=== PATIENT | female | born 1945 | race Hispanic/Latino ===

== ENCOUNTER 2018-05-22 11:42 | Inpatient (IN) | payer MEDICARE, OTHER ==
[2018-05-22] MEDS ORDERED: Sodium Chloride 0.9% 1,000 ML IV STA (12:05)
[2018-05-22] MEDS ORDERED: Lidocaine/Epi 1% 1:100000 20 ML IJ ONE (12:06)
--- NOTE | 2018-05-22 12:10 | ED PDOC ---
Syncope/Near Syncope/Dizziness <Coty Zepeda - Last Filed: 05/22/18 13:09> History Per: Patient, EMS Onset/Duration Of Symptoms: Hrs (1) Current Symptoms Are (Timing): Better Activity At Onset Of Symptoms: Exertional Activity Associated Symptoms Preceding Syncopal Episode: Lightheadedness Seizure Or Post-ictal Symptoms: Generalized Seizure Activity Fall Associated With With Symptoms: Yes, Positive Injury Severity: Moderate Additional Complaint(s): Brought by EMS after pt experienced syncopal episode. Occurred after playing tennis in sun. Pt describes feeling light headed prior to passing out. [place] "woozy". Does not recall falling or hitting head. Daughter was witness and described generalized shaking upper ext and tensing lasted approx 30 sec. Pt denies chest pain or palpitations. No change in vision. Started vomiting after arriving to ED. <Joshua Collado - Last Filed: 05/22/18 14:29> Time Seen by Provider: 05/22/18 11:54 Chief Complaint (Nursing): Dizziness/Lightheaded Past Medical History <Coty Zepeda - Last Filed: 05/22/18 13:09> - Medical History PMH: HTN Denies: Chronic Kidney Disease - Family History Family History: States: Unknown Family Hx - Immunization History Hx Tetanus Toxoid Vaccination: Yes (5 years ago) Hx Influenza Vaccination: No Hx Pneumococcal Vaccination: No <Johsua Collado - Last Filed: 05/22/18 14:29> - Allergies Allergies/Adverse Reactions: Allergies Allergy/AdvReac Type Severity Reaction Status Date / Time No Known Allergies Allergy Verified 05/22/18 11:56 Review of Systems ROS Statement: Except As Marked, All Systems Reviewed And Found Negative Cardiovascular: Negative for: Chest Pain, Palpitations Neurological: Positive for: Seizures, Headache, Dizziness, Other (Syncope). Negative for: Weakness, Numbness <Joshua Collado - Last Filed: 05/22/18 14:29> Physical Exam - Reviewed Nursing Documentation Reviewed: Yes Vital Signs Reviewed: Yes - Physical Exam Appears: Positive for: Non-toxic, No Acute Distress Head Exam: Negative for: ATRAUMATIC (2.5 cm lac left temperooccipyal area. No palp fx.) Skin: Positive for: Normal Color, Warm, DRY Eye Exam: Positive for: EOMI, Normal appearance, PERRL ENT: Positive for: Normal ENT Inspection Neck: Positive for: Normal, Painless ROM, Supple Cardiovascular/Chest: Positive for: Regular Rate, Rhythm Respiratory: Positive for: CNT, Normal Breath Sounds Gastrointestinal/Abdominal: Positive for: Normal Exam, Soft Back: Positive for: Normal Inspection. Negative for: Vertebral Tenderness Extremity: Positive for: Normal ROM Neurologic/Psych: Positive for: Alert, Oriented. Negative for: Motor/Sensory Deficits <Joshua Collado - Last Filed: 05/22/18 14:29> - Laboratory Results Result Diagrams: 05/22/18 12:24 05/22/18 12:24 <DuaneCoty - Last Filed: 05/22/18 13:09> - Laboratory Results Result Diagrams: 05/22/18 12:24 05/22/18 12:24 <HeavenJoshua Brand - Last Filed: 05/22/18 14:29> Procedures - Laceration/Wound Repair Left Occipital Wound Length (cm): 5.5 Wound's Depth, Shape: linear Wound Explored: no foreign body removed Irrigated w/ Saline (ccs): 250 Betadine Prep?: Yes (250cc of betadine and 250cc of NS) Anesthesia: 1% Lidocaine Volume Anesthetic (ccs): 6 Wound Repaired With: Elpidio Wound Complexity: Simple <DuaneCoty - Last Filed: 05/22/18 13:09> Disposition <Coty Zepeda - Last Filed: 05/22/18 13:09> - Patient ED Disposition Is Patient to be Admitted: Yes - Disposition Disposition Time: 14:29 - Pt Status Changed To: Hospital Disposition Of: Observation - POA Present On Arrival: None <Joshua Collado - Last Filed: 05/22/18 14:29> - Clinical Impression Clinical Impression: Syncope - Disposition Condition: FAIR Forms: [employer] ([place])
[2018-05-22] MEDS ORDERED: Lidocaine 1% Inj (20ml) ONE (12:23)
[2018-05-22 12:43] LABS: ALB/GLOB RATIO 1.4 (1.0-2.1); ALBUMIN 4.4 g/dL (3.5-5.0); ALT/SGPT 47 U/L (9-52); AST/SGOT 32 U/L (14-36); BLOOD UREA NITROGEN 16 mg/dl (7-17); CALCIUM 9.8 mg/dL (8.4-10.2); GFR AFRICAN-AMERICAN > 60; GFR NON-AFRICAN AMERICAN > 60
[2018-05-22 12:49] LABS: BASO # 0.1 K/uL (0.0-0.2); BASO % 0.8 % (0.0-2.0); EOS # 0.1 K/uL (0.0-0.7); EOS % 1.3 % (0.0-4.0); LYMPH # 2.4 K/uL (1.0-4.3); LYMPH % 28.6 % (20.0-40.0); MEAN CELL VOLUME 85.4 fl (81.0-99.0); MEAN CORPUSCULAR HEMOGLOBIN 28.8 pg (27.0-31.0); MEAN CORPUSCULAR HGB CONC 33.8 g/dL (33.0-37.0); MEAN PLATELET VOLUME 9.4 fl (7.2-11.7); MONO # 0.6 K/uL (0.0-0.8); MONO % 7.1 % (0.0-10.0); NEUT # 5.2 K/uL (1.8-7.0); NEUT % 62.2 % (50.0-75.0); RBC 4.87 Mil/uL (3.80-5.20); RED CELL DISTRIBUTION WIDTH 12.8 % (11.5-14.5); WHITE BLOOD COUNT 8.4 K/uL (4.8-10.8)
--- NOTE | 2018-05-22 13:44 | RAD ---
Date of service: 05/22/2018 HISTORY: cough COMPARISON: No prior. FINDINGS: LUNGS: No active pulmonary disease. Bibasilar atelectasis/scarring. PLEURA: No significant pleural effusion identified, no pneumothorax apparent. CARDIOVASCULAR: Atherosclerotic aortic calcifications. Cardiomediastinal silhouette prominent. OSSEOUS STRUCTURES: Degenerative changes. VISUALIZED UPPER ABDOMEN: Normal. OTHER FINDINGS: None. IMPRESSION: No active disease.
--- NOTE | 2018-05-22 14:10 | CT ---
Date of service: 05/22/2018 PROCEDURE: CT HEAD WITHOUT CONTRAST. HISTORY: r/o bleed COMPARISON: None available. TECHNIQUE: Axial computed tomography images were obtained through the head/brain without intravenous contrast. Radiation dose: Total exam DLP = 868.4 mGy-cm. This CT exam was performed using one or more of the following dose reduction techniques: Automated exposure control, adjustment of the mA and/or kV according to patient size, and/or use of iterative reconstruction technique. FINDINGS: HEMORRHAGE: No intracranial hemorrhage. BRAIN: No mass effect or edema. No atrophy or chronic microvascular ischemic changes. VENTRICLES: Unremarkable. No hydrocephalus. CALVARIUM: Unremarkable. PARANASAL SINUSES: Unremarkable as visualized. No significant inflammatory changes. MASTOID AIR CELLS: Unremarkable as visualized. No inflammatory changes. OTHER FINDINGS: Left parietal occipital scalp swelling with superficial skin anni. IMPRESSION: Left parietal occipital scalp swelling. No calvarial fracture. No acute intracranial pathology or hemorrhage.
--- NOTE | 2018-05-22 14:13 | CT ---
Date of service: 05/22/2018 PROCEDURE: CT Cervical Spine without contrast HISTORY: trauma COMPARISON: None available. TECHNIQUE: Axial computed tomography images were obtained of the cervical spine without the use of intravenous contrast. Coronal and sagittal reformatted images were created and reviewed. Radiation dose: Total exam DLP = 521.7 mGy-cm. This CT exam was performed using one or more of the following dose reduction techniques: Automated exposure control, adjustment of the mA and/or kV according to patient size, and/or use of iterative reconstruction technique. FINDINGS: VERTEBRAE: No fracture. Normal alignment. No destructive bony lesion. DISCS/SPINAL CANAL/NEURAL FORAMINA: Multilevel disc space narrowing with endplate changes. PARASPINAL SOFT TISSUES: Unremarkable. OTHER FINDINGS: None. IMPRESSION: No acute fracture. Multilevel degenerative changes.
[2018-05-23 07:22] LABS: HEMOGLOBIN 12.5 g/dL (12.0-16.0); MEAN CELL VOLUME 85.5 fl (81.0-99.0); MEAN CORPUSCULAR HEMOGLOBIN 28.7 pg (27.0-31.0); MEAN CORPUSCULAR HGB CONC 33.5 g/dL (33.0-37.0); RBC 4.36 Mil/uL (3.80-5.20); RED CELL DISTRIBUTION WIDTH 13.1 % (11.5-14.5); WHITE BLOOD COUNT 8.3 K/uL (4.8-10.8)
--- NOTE | 2018-05-23 07:49 | CP.PCM.HP ---
History of Present Illness - History of Present Illness History of Present Illness: This is a 73 y/o female admitted for syncopal episode after playing tennis. She claims that right after playing tennis she felt very dizzy and passed out. She had no other sx such as seizure activity or vomiting . She sustained a laceration on the left occipitoparietal area. She denies having any headaches chest pain or SOB prior to onset of symptoms. She denies having any episode of dizziness in the past. Initial worrk up at the ER showed normal C spine and Ct head and normal labs. Medical Hx HTN Currently on ASA amlodipine and vitamins. Present on Admission - Present on Admission Any Indicators Present on Admission: No History of DVT/PE: No History of Uncontrolled Diabetes: No Urinary Catheter: No Decubitus Ulcer Present: No Past Patient History - Past Medical History & Family History Past Medical History?: Yes - Past Social History Smoking Status: Former Smoker - CARDIAC Hx Cardiac Disorders: Yes Hx Hypertension: Yes - PULMONARY Hx Respiratory Disorders: No - NEUROLOGICAL Hx Neurological Disorder: No - HEENT Hx HEENT Problems: No - RENAL Hx Chronic Kidney Disease: No - ENDOCRINE/METABOLIC Hx Endocrine Disorders: No - HEMATOLOGICAL/ONCOLOGICAL Hx Blood Disorders: No - INTEGUMENTARY Hx Dermatological Problems: No - MUSCULOSKELETAL/RHEUMATOLOGICAL Hx Musculoskeletal Disorders: No Hx Falls: No - GASTROINTESTINAL Hx Gastrointestinal Disorders: No - GENITOURINARY/GYNECOLOGICAL Hx Genitourinary Disorders: No - PSYCHIATRIC Hx Psychophysiologic Disorder: No Hx Substance Use: No - SURGICAL HISTORY Hx Surgeries: Yes Hx Appendectomy: Yes - ANESTHESIA Hx Anesthesia: Yes Hx Anesthesia Reactions: No Hx Malignant Hyperthermia: No Has any member of the family had a problem w/ anesthesia?: No Meds Allergies/Adverse Reactions: Allergies Allergy/AdvReac Type Severity Reaction Status Date / Time No Known Allergies Allergy Verified 05/22/18 11:56 Physical Exam - Head Exam Head Exam: NORMAL INSPECTION - Eye Exam Eye Exam: Normal appearance - ENT Exam ENT Exam: Mucous Membranes Moist - Respiratory Exam Respiratory Exam: Clear to Auscultation Bilateral - Cardiovascular Exam Cardiovascular Exam: REGULAR RHYTHM - GI/Abdominal Exam GI & Abdominal Exam: Normal Bowel Sounds - Neurological Exam Neurological exam: Alert, CN II-XII Intact, Oriented x3 - Psychiatric Exam Psychiatric exam: Normal Affect - Skin Skin Exam: Normal Color Additional comments: sutured lacerated wound at he left par[place]o occipital area. Results - Vital Signs Recent Vital Signs: Last Vital Signs Temp 98.0 F 05/23/18 04:41 Pulse 75 05/23/18 04:41 Resp 18 05/23/18 04:41 BP 127/74 05/23/18 04:41 Pulse Ox 98 05/23/18 04:41 - Labs Result Diagrams: 05/23/18 06:30 05/23/18 06:30 Labs: Laboratory Results - last 24 hr 05/22/18 05/22/18 05/22/18 12:24 12:24 12:50 WBC 8.4 RBC 4.87 Hgb 14.0 Hct 41.6 MCV 85.4 MCH 28.8 MCHC 33.8 RDW 12.8 Plt Count 208 MPV 9.4 Neut % (Auto) 62.2 Lymph % (Auto) 28.6 [place] % (Auto) 7.1 Eos % (Auto) 1.3 Baso % (Auto) 0.8 Neut # (Auto) 5.2 Lymph # (Auto) 2.4 [place] # (Auto) 0.6 Eos # (Auto) 0.1 Baso # (Auto) 0.1 Sodium 142 Potassium 3.6 Chloride 106 Carbon Dioxide 22 Anion Gap 18 BUN 16 Creatinine 0.7 Est GFR ( Amer) > 60 Est GFR (Non-Af Amer) > 60 POC Glucose (mg/dL) 109 Random Glucose 129 H Calcium 9.8 Total Bilirubin 0.8 AST 32 ALT 47 Alkaline Phosphatase 78 Troponin I < 0.0120 Total Protein 7.7 Albumin 4.4 Globulin 3.3 Albumin/Globulin Ratio 1.4 05/22/18 05/23/18 22:33 06:30 WBC 8.3 RBC 4.36 Hgb 12.5 Hct 37.2 MCV 85.5 MCH 28.7 MCHC 33.5 RDW 13.1 Plt Count 192 MPV Neut % (Auto) Lymph % (Auto) [place] % (Auto) Eos % (Auto) Baso % (Auto) Neut # (Auto) Lymph # (Auto) [place] # (Auto) Eos # (Auto) Baso # (Auto) Sodium Potassium Chloride Carbon Dioxide Anion Gap BUN Creatinine Est GFR ( Amer) Est GFR (Non-Af Amer) POC Glucose (mg/dL) Random Glucose Calcium Total Bilirubin AST ALT Alkaline Phosphatase Troponin I < 0.0120 Total Protein Albumin Globulin Albumin/Globulin Ratio Assessment & Plan (1) Syncope Status: Acute (2) Laceration of scalp Status: Acute (3) Contusion of head Status: Acute (4) HTN (hypertension) Status: Acute - Assessment and Plan (Free Text) Plan: telemetry cardiology eval monitor carotid US troponin neuro eval
[2018-05-23 07:50] LABS: ALB/GLOB RATIO 1.4 (1.0-2.1); ALT/SGPT 39 U/L (9-52); AST/SGOT 28 U/L (14-36); BLOOD UREA NITROGEN 7 mg/dl (7-17); CALCIUM 9.1 mg/dL (8.4-10.2); GFR AFRICAN-AMERICAN > 60; GFR NON-AFRICAN AMERICAN > 60
[2018-05-23 11:48] LABS: SQUAMOUS EPITHIAL < 1 /hpf (0-5); URINE BILIRUBIN NEGATIVE (NEGATIVE); URINE BLOOD NEGATIVE (NEGATIVE); URINE CLARITY CLEAR (Clear); URINE COLOR YELLOW (YELLOW); URINE GLUCOSE (UA) NEG (Normal); URINE LEUKOCYTE ESTERASE NEG Leu/uL (Negative); URINE PROTEIN NEGATIVE (NEGATIVE); URINE UROBILINOGEN 0.2-1.0 mg/dL (0.2-1.0)
--- NOTE | 2018-05-23 12:15 | CP.PCM.CON ---
History of Present Illness - History of Present Illness History of Present Illness: I was asked to evaluate patient by Dr Garcia. Patient is a 73 year old female with PMH HTN, hypercholesterolemia who presents with syncope. Patient was playing tennis when she had a syncopal events. In the hosptial she has dizziness with movement. denies syncope. Echocardiogram reviewed revealing severe LV dysfunction with regional wall motion abnormalities. Review of Systems - Constitutional Constitutional: absent: As Per HPI, Anorexia, Chills, Daytime Sleepiness, Excessive Sweating, Fatigue, Fever, Frequent Falls, Headache, Increased Appetite , Lethargy, Malaise, Night Sweats, Snoring, Sleep Apnea, Weight Gain, Weight Loss, Weakness, Other - EENT Eyes: absent: As Per HPI, Blind Spots, Blurred Vision, Change in Vision, Decreased Night Vision, Diplopia, Discharge, Dry Eye, Exophthalmos, Floaters, Irritation, Itchy Eyes, Loss of Peripheral Vision, Pain, Photophobia, Requires Corrective Lenses, Sees Flashes, Spots in Vision, Tunnel Vision, Other Visual Disturbances, Loss of Vision, Other Ears: absent: As Per HPI, Decreased Hearing, Ear Discharge, Ear Pain, Tinnitus, Abnormal Hearing, Disequilibrium, Dizziness, Other Nose/Mouth/Throat: absent: As Per HPI, Epistaxis, Nasal Congestion, Nasal Discharge, Nasal Obstruction, Nasal Trauma, Nose Pain, Post Nasal Drip, Sinus Pain, Sinus Pressure, Bleeding Gums, Change in Voice, Dental Pain, Dry Mouth, Dysphagia, Halitosis, Hoarsness, Lip Swelling, Mouth Lesions, Mouth Pain, Odynophagia, Sore Throat, Throat Swelling, Tongue Swelling, Facial Pain, Neck Pain, Neck Mass, Other - Cardiovascular Cardiovascular: Dyspnea on Exertion, Syncope - Respiratory Respiratory: absent: As Per HPI, Cough, Dyspnea, Hemoptysis, Dyspnea on Exertion , Wheezing, Snoring, Stridor, Pain on Inspiration, Chest Congestion, Excessive Mucous Production, Change in Mucous Color, Pain with Coughing, Other - Gastrointestinal Gastrointestinal: absent: As Per HPI, Abdominal Pain, Belching, Bloating, Change in Bowel Habits, Change in Stool Character, Coffee Ground Emesis, Constipation, Cramping, Diarrhea, Dyspepsia, Dysphagia, Early Satiety, Excessive Flatus, Fecal Incontinence, Heartburn, Hematemesis, Hematochezia, Loose Stools, Melena, Nausea, Odynophagia, Temesmus, Vomiting, Other - Musculoskeletal Musculoskeletal: absent: As Per HPI, Abnormal Gait, Arthralgias, Atrophy, Back Pain, Deformity, Joint Swelling, Limited Range of Motion, Loss of Height, Muscle Cramps, Muscle Weakness, Myalgias, Neck Pain, Numbness, Radiating Pain into Limb, Stiffness, Tingling, Other - Integumentary Integumentary: absent: As Per HPI, Acne, Alopecia, Bleeding Lesions, Change in Hair, Change in Nails, Change in Pigmentation, Changing Lesions, Dry Skin, Erythema, Furuncle, Hirsutism, Lesions, New Lesions, Non-Healing Lesions, Photosensitivity, Pruritus, Rash, Skin Pain, Skin Ulcer, Sores, Striae, Swelling , Unusual Bruising, Wounds, Jaundice, Other - Neurological Neurological: absent: As Per HPI, Abnormal Gait, Abnormal Hearing, Abnormal Movements, Abnormal Speech, Behavioral Changes, Burning Sensations, Confusion, Convulsions, Disequilibrium, Dizziness, Numbness, Focal Weakness, Frequent Falls , Headaches, Lack of Coordination, Loss of Vision, Memory Loss, Paresthesias, Radicular Pain, Restless Legs, Sensory Deficit, Syncope, Tingling, Tremor, Vertigo, Weakness, Other Visual Disturbances, Other - Psychiatric Psychiatric: absent: As Per HPI, Abnormal Sleep Pattern, Anhedonia, Anxiety, Auditory Hallucinations, Behavioral Changes, Change in Appetite, Change in Libido, Confusion, Depression, Difficulty Concentrating, Hallucinations, Homicidal Ideation, Hopelessness, Irritability, Memory Loss, Mood Swings, Panic Attacks, Paranoia, Suicidal Ideation, Visual Hallucinations, Tactile Hallucinations, Other - Endocrine Endocrine: absent: As Per HPI, Change in Body Appearance, Change in Libido, Cold Intolorance, Deepening of Voice, Excessive Sweating, Fatigue, Flushing, Heat Intolorance, Increase in Ring/Shoe/Hat Size, Palpitations, Polydipsia, Polyphagia, Polyuria, Other - Hematologic/Lymphatic Hematologic: absent: As Per HPI, Easy Bleeding, Easy Bruising, Lymphadenopathy, Other Past Patient History - Past Medical History & Family History Past Medical History?: Yes - Past Social History Smoking Status: Former Smoker - CARDIAC Hx Cardiac Disorders: Yes Hx Hypertension: Yes - PULMONARY Hx Respiratory Disorders: No - NEUROLOGICAL Hx Neurological Disorder: No - HEENT Hx HEENT Problems: No - RENAL Hx Chronic Kidney Disease: No - ENDOCRINE/METABOLIC Hx Endocrine Disorders: No - HEMATOLOGICAL/ONCOLOGICAL Hx Blood Disorders: No - INTEGUMENTARY Hx Dermatological Problems: No - MUSCULOSKELETAL/RHEUMATOLOGICAL Hx Musculoskeletal Disorders: No Hx Falls: No - GASTROINTESTINAL Hx Gastrointestinal Disorders: No - GENITOURINARY/GYNECOLOGICAL Hx Genitourinary Disorders: No - PSYCHIATRIC Hx Psychophysiologic Disorder: No Hx Substance Use: No - SURGICAL HISTORY Hx Surgeries: Yes Hx Appendectomy: Yes - ANESTHESIA Hx Anesthesia: Yes Hx Anesthesia Reactions: No Hx Malignant Hyperthermia: No Has any member of the family had a problem w/ anesthesia?: No Meds Allergies/Adverse Reactions: Allergies Allergy/AdvReac Type Severity Reaction Status Date / Time No Known Allergies Allergy Verified 05/22/18 11:56 - Medications Medications: Current Medications Acetaminophen (Tylenol 325mg Tab) 650 mg PO Q4 PRN PRN Reason: Pain, moderate (4-7) Amlodipine Besylate (Norvasc) 5 mg PO DAILY STEFFANY Ondansetron HCl (Zofran Inj) 2 mg IVP Q4 PRN PRN Reason: Nausea/Vomiting Last Admin: 05/23/18 11:21 Dose: 2 mg Physical Exam - Constitutional Appears: Non-toxic - Head Exam Head Exam: NORMAL INSPECTION - Eye Exam Eye Exam: Normal appearance - ENT Exam ENT Exam: Mucous Membranes Moist - Neck Exam Neck exam: Positive for: Normal Inspection - Respiratory Exam Respiratory Exam: NORMAL BREATHING PATTERN - Cardiovascular Exam Cardiovascular Exam: REGULAR RHYTHM - GI/Abdominal Exam GI & Abdominal Exam: Normal Bowel Sounds - Rectal Exam Rectal Exam: Deferred - Extremities Exam Extremities exam: Positive for: pedal edema - Back Exam Back exam: NORMAL INSPECTION - Neurological Exam Neurological exam: Alert, Oriented x3 - Psychiatric Exam Psychiatric exam: Normal Affect - Skin Skin Exam: Normal Color Results - Vital Signs Recent Vital Signs: Last Vital Signs Temp 97.7 F 05/23/18 08:00 Pulse 68 05/23/18 08:00 Resp 20 05/23/18 08:00 BP 133/71 05/23/18 08:00 Pulse Ox 98 05/23/18 08:00 - Labs Result Diagrams: 05/23/18 06:30 05/23/18 06:30 Labs: Laboratory Results - last 24 hr 05/22/18 05/22/18 05/22/18 12:24 12:24 12:50 WBC 8.4 RBC 4.87 Hgb 14.0 Hct 41.6 MCV 85.4 MCH 28.8 MCHC 33.8 RDW 12.8 Plt Count 208 MPV 9.4 Neut % (Auto) 62.2 Lymph % (Auto) 28.6 [place] % (Auto) 7.1 Eos % (Auto) 1.3 Baso % (Auto) 0.8 Neut # (Auto) 5.2 Lymph # (Auto) 2.4 [place] # (Auto) 0.6 Eos # (Auto) 0.1 Baso # (Auto) 0.1 Sodium 142 Potassium 3.6 Chloride 106 Carbon Dioxide 22 Anion Gap 18 BUN 16 Creatinine 0.7 Est GFR ( Amer) > 60 Est GFR (Non-Af Amer) > 60 POC Glucose (mg/dL) 109 Random Glucose 129 H Calcium 9.8 Total Bilirubin 0.8 AST 32 ALT 47 Alkaline Phosphatase 78 Troponin I < 0.0120 Total Protein 7.7 Albumin 4.4 Globulin 3.3 Albumin/Globulin Ratio 1.4 Urine Color Urine Clarity Urine pH Ur Specific [place] Urine Protein Urine Glucose (UA) Urine Ketones Urine Blood Urine Nitrate Urine Bilirubin Urine Urobilinogen Ur Leukocyte Esterase Urine RBC (Auto) Urine Microscopic WBC Ur Squamous Epith Cells 05/22/18 05/23/18 05/23/18 22:33 06:30 06:30 WBC 8.3 RBC 4.36 Hgb 12.5 Hct 37.2 MCV 85.5 MCH 28.7 MCHC 33.5 RDW 13.1 Plt Count 192 MPV Neut % (Auto) Lymph % (Auto) [place] % (Auto) Eos % (Auto) Baso % (Auto) Neut # (Auto) Lymph # (Auto) [place] # (Auto) Eos # (Auto) Baso # (Auto) Sodium 142 Potassium 3.6 Chloride 107 Carbon Dioxide 25 Anion Gap 14 BUN 7 Creatinine 0.5 L Est GFR ( Amer) > 60 Est GFR (Non-Af Amer) > 60 POC Glucose (mg/dL) Random Glucose 99 Calcium 9.1 Total Bilirubin 0.8 AST 28 ALT 39 Alkaline Phosphatase 64 Troponin I < 0.0120 < 0.0120 Total Protein 6.8 Albumin 4.0 Globulin 2.8 Albumin/Globulin Ratio 1.4 Urine Color Urine Clarity Urine pH Ur Specific [place] Urine Protein Urine Glucose (UA) Urine Ketones Urine Blood Urine Nitrate Urine Bilirubin Urine Urobilinogen Ur Leukocyte Esterase Urine RBC (Auto) Urine Microscopic WBC Ur Squamous Epith Cells 05/23/18 11:30 WBC RBC Hgb Hct MCV MCH MCHC RDW Plt Count MPV Neut % (Auto) Lymph % (Auto) [place] % (Auto) Eos % (Auto) Baso % (Auto) Neut # (Auto) Lymph # (Auto) [place] # (Auto) Eos # (Auto) Baso # (Auto) Sodium Potassium Chloride Carbon Dioxide Anion Gap BUN Creatinine Est GFR ( Amer) Est GFR (Non-Af Amer) POC Glucose (mg/dL) Random Glucose Calcium Total Bilirubin AST ALT Alkaline Phosphatase Troponin I Total Protein Albumin Globulin Albumin/Globulin Ratio Urine Color Yellow Urine Clarity Clear Urine pH 6.0 Ur Specific [place] 1.016 Urine Protein Negative Urine Glucose (UA) Neg Urine Ketones 80 Urine Blood Negative Urine Nitrate Negative Urine Bilirubin Negative Urine Urobilinogen 0.2-1.0 Ur Leukocyte Esterase Neg Urine RBC (Auto) 2 Urine Microscopic WBC 1 Ur Squamous Epith Cells < 1 - EKG Data EKG Interpreted by: Myself EKG shows normal: Sinus rhythm Assessment & Plan (1) Cardiomyopathy Assessment and Plan: has regional wall motion abnormalities suggestive of CAD. will schedule cardiac cath. Status: Acute (2) Syncope Assessment and Plan: unclear etiology. will discuss neuro work up Status: Acute (3) HTN (hypertension) Assessment and Plan: add Coreg. Status: Acute
--- NOTE | 2018-05-23 15:22 | CON ---
DATE: 05/23/2018 NEUROLOGY CONSULT CHIEF COMPLAINT: Syncope. HISTORY OF PRESENT ILLNESS: This is a 73-year-old woman with history of hypertension, who was playing tennis in the sun and described a light feeling and felt like she was going to pass out, felt woozy and passed out, hit her back of her head, had some stitches. At this time, she has been mildly dizzy likely from the impact of head injury. CAT scan of the head showed no acute intracranial abnormalities. She had some questionable jerky movements after passing out. No history of seizure disorder, meningitis, or trauma to the brain. This is unlikely a seizure disorder, it is more of a syncopal convulsion. Cardiology is on board and will be doing a stress test. Orthostatic vital signs are negative. MEDICATIONS: Reviewed by nurse reconciliation sheet. PAST MEDICAL HISTORY: As above. SOCIAL HISTORY: No illicit drug abuse, smoking, or EtOH abuse. ALLERGIES: NO KNOWN DRUG ALLERGIES. FAMILY HISTORY: Noncontributory. LABORATORY DATA: Sodium is 142, potassium 3.6, chloride 107, carbon dioxide 25, BUN of 7, creatinine 0.5. Random glucose 99. PHYSICAL EXAMINATION: VITAL SIGNS: Temperature of 98, pulse of 82, blood pressure 125/75, respiratory rate 20, oxygen saturation 95% on room air. GENERAL: The patient is sitting up in bed, in no acute distress. HEENT: Atraumatic, normocephalic. PERRLA. Extraocular muscles are intact. NECK: Supple. No JVD. No adenopathy noted. LUNGS: Clear to auscultation. No adventitious sounds. HEART: S1 and S2. Normal rate and rhythm. No murmur, rubs, or gallops. ABDOMEN: Soft, nontender, nondistended. Bowel sounds are present. EXTREMITIES: No clubbing. No cyanosis. Peripheral pulses are 2+ bilaterally. NEUROLOGIC: The patient is alert and oriented to person, place, month, and year. Speech is fluent without any errors. Cranial nerves II through XII are intact. Motor: No pronator drift is seen. Moves all extremities equally. Toes are downgoing bilaterally. Sensory: Light touch, pinprick, proprioception, and vibration are intact. DTRs are 2+ throughout. Coordination: [id number] intact. No dysmetria noted. Gait is deferred for now. ASSESSMENT AND PLAN: This is a 73-year-old woman with history of hypertension, who came in for syncopal episode and had a syncopal convulsion. Her dizziness is likely secondary to head injury from syncope, this is not seizure at all. I recommend to follow up with Cardiology in regards to a stress test given her echocardiogram and recommend adequate hydration and monitor electrolytes and correct accordingly. Once again, thank you for this consult. She is clinically stable from my standpoint Nicholas Terrazas MD
--- NOTE | 2018-05-24 09:24 | CP.PCM.PN ---
Subjective - Date & Time of Evaluation Date of Evaluation: 05/24/18 Time of Evaluation: 09:20 - Subjective Subjective: patient has no chest pain. Objective - Vital Signs/Intake and Output Vital Signs (last 24 hours): Temp Pulse Resp BP Pulse Ox 97.6 F 60 18 139/85 95 05/24/18 08:00 05/24/18 08:00 05/24/18 08:00 05/24/18 08:00 05/24/18 08:00 - Medications Medications: Current Medications Acetaminophen (Tylenol 325mg Tab) 650 mg PO Q4 PRN PRN Reason: Pain, moderate (4-7) Amlodipine Besylate (Norvasc) 5 mg PO DAILY [facility] Last Admin: 05/23/18 14:13 Dose: 5 mg Carvedilol (Coreg) 6.25 mg PO Q12@0200,1400 [facility] Last Admin: 05/24/18 01:59 Dose: 6.25 mg Ondansetron HCl (Zofran Inj) 2 mg IVP Q4 PRN PRN Reason: Nausea/Vomiting Last Admin: 05/23/18 11:21 Dose: 2 mg - Labs Labs: 05/23/18 06:30 05/23/18 06:30 - Constitutional Appears: Non-toxic - Head Exam Head Exam: NORMAL INSPECTION - Eye Exam Eye Exam: Normal appearance - ENT Exam ENT Exam: Mucous Membranes Moist - Neck Exam Neck Exam: Full ROM - Respiratory Exam Respiratory Exam: NORMAL BREATHING PATTERN - Cardiovascular Exam Cardiovascular Exam: REGULAR RHYTHM - GI/Abdominal Exam GI & Abdominal Exam: Normal Bowel Sounds - Rectal Exam Rectal Exam: Deferred - Extremities Exam Extremities Exam: Normal Inspection - Back Exam Back Exam: NORMAL INSPECTION - Neurological Exam Neurological Exam: Alert - Psychiatric Exam Psychiatric exam: Normal Affect - Skin Skin Exam: Normal Color Assessment and Plan (1) Cardiomyopathy Assessment & Plan: will need assessment for CAD. for cardiac cath tomorrow Status: Acute (2) Syncope Assessment & Plan: cleared by neuro Status: Acute (3) HTN (hypertension) Assessment & Plan: blood pressure control Status: Acute
--- NOTE | 2018-05-24 16:54 | CP.PCM.PN ---
Subjective - Date & Time of Evaluation Date of Evaluation: 05/24/18 Time of Evaluation: 10:30 - Subjective Subjective: Patient feels a lot better. Seen by Dr Glass and ECHO showed cardiomyopathy. Vie telemetry showed no abnormal rhythm. Patient denies having any SOB. Denies having any leg edema. Objective - Vital Signs/Intake and Output Vital Signs (last 24 hours): Temp Pulse Resp BP Pulse Ox 98.3 F 70 16 121/75 96 05/24/18 16:09 05/24/18 16:09 05/24/18 16:09 05/24/18 16:09 05/24/18 16:09 - Medications Medications: Current Medications Acetaminophen (Tylenol 325mg Tab) 650 mg PO Q4 PRN PRN Reason: Pain, moderate (4-7) Amlodipine Besylate (Norvasc) 5 mg PO DAILY [facility] Last Admin: 05/24/18 10:26 Dose: 5 mg Carvedilol (Coreg) 6.25 mg PO Q12@0200,1400 [facility] Last Admin: 05/24/18 14:48 Dose: 6.25 mg Ondansetron HCl (Zofran Inj) 2 mg IVP Q4 PRN PRN Reason: Nausea/Vomiting Last Admin: 05/23/18 11:21 Dose: 2 mg - Labs Labs: 05/23/18 06:30 05/23/18 06:30 - Head Exam Head Exam: NORMAL INSPECTION - ENT Exam ENT Exam: Mucous Membranes Moist - Respiratory Exam Respiratory Exam: Clear to Ausculation Bilateral - Cardiovascular Exam Cardiovascular Exam: REGULAR RHYTHM - GI/Abdominal Exam GI & Abdominal Exam: Normal Bowel Sounds - Neurological Exam Neurological Exam: Awake, Oriented x3 - Psychiatric Exam Psychiatric exam: Normal Mood - Skin Skin Exam: Normal Color Assessment and Plan (1) Syncope Status: Acute (2) Laceration of scalp Status: Acute (3) Contusion of head Status: Acute (4) HTN (hypertension) Status: Acute - Assessment and Plan (Free Text) Plan: Con tmeds Cont monitor schduled for stress test/ cardiac cath in AM. Discussed with patient re procedure.
[2018-05-25 08:29] LABS: BARBITURATES, UR NEGATIVE (NEGATIVE); BENZODIAZEPINES, UR NEGATIVE (NEGATIVE); OPIATES, UR NEGATIVE (NEGATIVE); PHENCYCLIDINE, UR NEGATIVE (NEGATIVE)
[2018-05-25 08:37] LABS: PARTIAL THROMBOPLASTIN TIME 31.6 Seconds (25.6-37.1); PROTHROMBIN TIME 11.2 Seconds (9.8-13.1)
--- NOTE | 2018-05-25 13:23 | CARD ---
APPROVED REPORT Date of service: 05/23/2018 EXAM: Two-dimensional and M-mode echocardiogram with Doppler and color Doppler. Other Information Quality : GoodRhythm : NSR INDICATION Syncope 2D DIMENSIONS IVSd0.74 (0.7-1.1cm)LVDd6.60 (3.9-5.9cm) LVOT Diameter2.05 (1.8-2.4cm)PWd1.00 (0.7-1.1cm) IVSs1.09 (0.8-1.2cm)LVDs5.58 (2.5-4.0cm) FS (%) 15.5 %PWs1.44 (0.8-1.2cm) M-Mode DIMENSIONS Left Atrium (MM)4.71 (2.5-4.0cm)IVSd1.12 (0.7-1.1cm) Aortic Root2.94 (2.2-3.7cm)LVDd6.44 (4.0-5.6cm) Aortic Cusp Exc.1.74 (1.5-2.0cm)PWd0.76 (0.7-1.1cm) IVSs1.09 cmFS (%) 16 % LVDs5.44 (2.0-3.8cm)PWs1.15 cm Aortic Valve AoV Peak Tdkngxvi094.9cm/sAoV VTI28.3cmAO Peak GR.7mmHg LVOT Peak Fzuxmjyz36.6cm/sLVOT VTI13.71cmAO Mean GR.5mmHg GUTIERREZ (VMAX)0.65ta1BCJ (VTI)0.90cm2 Mitral Valve MV E Eofmqmsp48.1cm/sMV DECEL SJHY394ftTU A Aqxmbgec254.1cm/s MV LMC65euR/A ratio0.8MVA (PHT)4.95cm2 TDI Lateral E' Peak V12.79cm/sMedial E' Peak V8.31cm/sE/Lateral E'7.0 E/Medial E'10.7 LEFT VENTRICLE The Left Ventricle is mildly dilated. There is borderline to mild concentric left ventricular hypertrophy. Left ventricle systolic function is moderately impaired. The Ejection Fraction is 35-40%. There is moderate to severe hypokinesis in the mid-inferoseptal, inferior wall. Transmitral Doppler flow pattern is Grade II-pseudonormal filling dynamics. RIGHT VENTRICLE The right ventricle is normal size. The right ventricular systolic function is normal. ATRIA The left atrium is mildly dilated. The right atrium size is normal. The interatrial septum is intact with no evidence for an atrial septal defect. AORTIC VALVE The aortic valve is thickened but opens well. There is trace aortic regurgitation. There is mild valvular aortic stenosis. MITRAL VALVE The mitral valve is thickened but opens well. There is a flail anterior mitral valve leaflet. There is no mitral valve stenosis. The mitral regurgitant jet is posteriorly directed, which is consistent with anterior leaflet pathology. Mitral regurgitation is mild to moderate. TRICUSPID VALVE The tricuspid valve leaflets are thickened , but open well. There is mild tricuspid regurgitation. PULMONIC VALVE The pulmonary valve is normal in structure. There is no pulmonic valvular regurgitation. GREAT VESSELS The aortic root is normal in size. The IVC collapses <50% with inspiration. PERICARDIAL EFFUSION The pericardium appears normal. <Conclusion> Left ventricle systolic function is moderately impaired. The Ejection Fraction is 35-40%. There is moderate to severe hypokinesis in the mid-inferoseptal, inferior wall. Transmitral Doppler flow pattern is Grade II-pseudonormal filling dynamics. There is mild valvular aortic stenosis. The mitral regurgitant jet is posteriorly directed, which is consistent with anterior leaflet pathology. Mitral regurgitation is mild to moderate. There is mild tricuspid regurgitation. The IVC collapses <50% with inspiration.
--- NOTE | 2018-05-25 13:58 | CARD ---
APPROVED REPORT Date of service: 05/22/2018 EKG Measurement Heart [id number] OR [id number] <Conclusion> Sinus rhythm with occasional premature ventricular complexes Possible Left atrial enlargement Possible Inferior infarct, age undetermined Abnormal ECG
--- NOTE | 2018-05-25 22:52 | CP.PCM.CON ---
History of Present Illness - History of Present Illness History of Present Illness: Attending: Dr Garcia PMD: Dr Geni Webb [employer] Machine Operator: Dr Bess Reason for consult: Critical care Management Chief Complaint: Syncope after exertion The patient was seen and examined in the ICU HPI: 73 years old female admitted to the [facility] on 05/22/18 with hx of fainting causing laceration to the left occipito-parietal region of the head after playing Tennis. She was diagnosed with Syncope. ECHO showed: Severe LV dysfunction and regional wall motion abnormality. EF was 35/40% Because of this she was transferred to [facility] for Cardio cath on which showed: 100% RCA, 90% left maim. The Patient is now here again at [facility] preparing to be transferred to [facility] for further intervention PMH: HTN; Cardiomyopathy; HLD PSH: Appendectomy SH: No illegal drug use; No alcohol; former smoker FH: State: No known family hx Allergies: NKDA Medication: reviewed Review of Systems - Constitutional Constitutional: absent: Anorexia, Chills, Fatigue, Fever, Headache - EENT Eyes: Requires Corrective Lenses. absent: Blurred Vision, Diplopia, Floaters, Other Visual Disturbances Ears: absent: Decreased Hearing, Tinnitus Nose/Mouth/Throat: absent: Epistaxis, Nasal Congestion, Sinus Pain, Sinus Pressure - Cardiovascular Cardiovascular: absent: Chest Pain, Dyspnea, Edema, Pedal Edema - Respiratory Respiratory: absent: Cough, Dyspnea, Chest Congestion - Gastrointestinal Gastrointestinal: absent: Abdominal Pain, Nausea, Vomiting - Genitourinary Genitourinary: absent: Dysuria, Flank Pain, Urinary Frequency - Musculoskeletal Musculoskeletal: absent: Back Pain, Joint Swelling, Myalgias - Integumentary Integumentary: absent: Skin Ulcer, Sores, Striae, Swelling - Neurological Neurological: absent: Confusion, Dizziness, Focal Weakness, Headaches, Loss of Vision, Weakness - Psychiatric Psychiatric: absent: Anxiety, Depression, Panic Attacks - Endocrine Endocrine: absent: Polydipsia, Polyphagia, Polyuria - Hematologic/Lymphatic Hematologic: absent: Easy Bleeding, Easy Bruising Past Patient History - Past Medical History & Family History Past Medical History?: Yes - Past Social History Smoking Status: Former Smoker Chewing Tobacco Use: No Cigar Use: No Alcohol: None Drugs: Denies Home Situation {Lives}: Alone - CARDIAC Hx Cardiac Disorders: Yes Hx Hypertension: Yes - PULMONARY Hx Respiratory Disorders: No - NEUROLOGICAL Hx Neurological Disorder: No - HEENT Hx HEENT Problems: No - RENAL Hx Chronic Kidney Disease: No - ENDOCRINE/METABOLIC Hx Endocrine Disorders: No - HEMATOLOGICAL/ONCOLOGICAL Hx Blood Disorders: No - INTEGUMENTARY Hx Dermatological Problems: No - MUSCULOSKELETAL/RHEUMATOLOGICAL Hx Musculoskeletal Disorders: No Hx Falls: No - GASTROINTESTINAL Hx Gastrointestinal Disorders: No - GENITOURINARY/GYNECOLOGICAL Hx Genitourinary Disorders: No - PSYCHIATRIC Hx Psychophysiologic Disorder: No Hx Substance Use: No - SURGICAL HISTORY Hx Surgeries: Yes Hx Appendectomy: Yes - ANESTHESIA Hx Anesthesia: Yes Hx Anesthesia Reactions: No Hx Malignant Hyperthermia: No Has any member of the family had a problem w/ anesthesia?: No Meds Allergies/Adverse Reactions: Allergies Allergy/AdvReac Type Severity Reaction Status Date / Time No Known Allergies Allergy Verified 05/22/18 11:56 - Medications Medications: Current Medications Acetaminophen (Tylenol 325mg Tab) 650 mg PO Q4 PRN PRN Reason: Pain, moderate (4-7) Amlodipine Besylate (Norvasc) 5 mg PO DAILY [facility] Last Admin: 05/25/18 08:47 Dose: Not Given Carvedilol (Coreg) 6.25 mg PO Q12@0200,1400 [facility] Last Admin: 05/25/18 21:23 Dose: Not Given Ondansetron HCl (Zofran Inj) 2 mg IVP Q4 PRN PRN Reason: Nausea/Vomiting Last Admin: 05/23/18 11:21 Dose: 2 mg Ticagrelor (Brilinta) 90 mg PO BID [facility] Physical Exam - Constitutional Appears: No Acute Distress - Head Exam Head Exam: NORMAL INSPECTION, NORMOCEPHALIC Additional comments: left Occipital with healing laceration - Eye Exam Eye Exam: EOMI Pupil Exam: PERRL - ENT Exam ENT Exam: Mucous Membranes Moist, Normal Exam, Normal External Ear Exam - Neck Exam Neck exam: Positive for: Full Rom, Normal Inspection. Negative for: Lymphadenopathy - Respiratory Exam Respiratory Exam: Clear to Auscultation Bilateral. absent: Rales, Rhonchi, Wheezes - Cardiovascular Exam Cardiovascular Exam: REGULAR RHYTHM, RRR, +S1, +S2. absent: JVD - GI/Abdominal Exam GI & Abdominal Exam: Normal Bowel Sounds, Soft. absent: Mass, Organomegaly, Tenderness - Extremities Exam Extremities exam: Positive for: full ROM. Negative for: calf tenderness, pedal edema, tenderness - Back Exam Back exam: NORMAL INSPECTION. absent: CVA tenderness (L), CVA tenderness (R) - Neurological Exam Neurological exam: CN II-XII Intact, Oriented x3, Reflexes Normal - Psychiatric Exam Psychiatric exam: Normal Affect, Normal Mood - Skin Skin Exam: Dry, Normal Color, Warm Results - Vital Signs Recent Vital Signs: Last Vital Signs Temp 98.3 F 05/25/18 21:00 Pulse 81 05/25/18 22:00 Resp 14 05/25/18 22:00 BP 102/55 L 05/25/18 22:00 Pulse Ox 96 05/25/18 22:00 - Labs Result Diagrams: 05/26/18 04:00 05/23/18 06:30 Labs: Laboratory Results - last 24 hr 05/25/18 05/25/18 07:36 08:10 PT 11.2 INR 1.0 APTT 31.6 Urine Opiates Screen Negative Urine Methadone Screen Negative Ur Barbiturates Screen Negative Ur Phencyclidine Scrn Negative Ur Amphetamines Screen Negative U Benzodiazepines Scrn Negative U Oth Cocaine Metabols Negative U Cannabinoids Screen Positive H Assessment & Plan - Assessment and Plan (Free Text) Assessment: #. CAD #. Cardiomyopathy #. HTN #. Syncope Plan: 73 years old female admitted to the [facility] on 05/22/18 with hx of fainting causing laceration to the left occipito-parietal region of the head after playing Tennis. She was diagnosed with Syncope. ECHO showed: Severe LV dysfunction and regional wall motion abnormality. EF was 35/40% Because of this she was transferred to [facility] for Cardio cath on which showed: 100% RCA, 90% left maim. The Patient is now here again at [facility] preparing to be transferred to [facility] for further intervention #. CAD with multivessel disease, for Coronary stent at [facility] on 05/26/18 - Dr Bess [employer] Operator on consult - Brilinta/ Coreg/ASA - The Patient is refusing anticoagulant, as she refers family having a bad experience #. Cardiomyopathy - Cardiology on consult - Coreg #. HTN - Coreg/Amlodipine #. Syncope - Cardiac monitoring #. DVT prophylaxis with SCD #. Code Status:Full - Date & Time Date: 05/25/18 Time: 22:52
[2018-05-26 05:59] LABS: BASO # 0.1 K/uL (0.0-0.2); BASO % 0.8 % (0.0-2.0); EOS # 0.1 K/uL (0.0-0.7); EOS % 1.3 % (0.0-4.0); HEMOGLOBIN 12.6 g/dL (12.0-16.0); LYMPH # 1.7 K/uL (1.0-4.3); LYMPH % 19.9 % (20.0-40.0); MEAN CELL VOLUME 84.6 fl (81.0-99.0); MEAN CORPUSCULAR HEMOGLOBIN 28.6 pg (27.0-31.0); MEAN CORPUSCULAR HGB CONC 33.8 g/dL (33.0-37.0); MEAN PLATELET VOLUME 9.8 fl (7.2-11.7); MONO # 0.7 K/uL (0.0-0.8); NEUT # 5.9 K/uL (1.8-7.0); RBC 4.41 Mil/uL (3.80-5.20); RED CELL DISTRIBUTION WIDTH 13.1 % (11.5-14.5); WHITE BLOOD COUNT 8.4 K/uL (4.8-10.8)
[2018-05-26 06:03] LABS: INR 1.1 (0.9-1.2); PARTIAL THROMBOPLASTIN TIME 30.8 Seconds (25.6-37.1); PROTHROMBIN TIME 11.7 Seconds (9.8-13.1)
[2018-05-26 06:39] LABS: BLOOD UREA NITROGEN 10 mg/dl (7-17); GFR AFRICAN-AMERICAN > 60; GFR NON-AFRICAN AMERICAN > 60
[2018-05-26] MEDS ORDERED: Potassium Chloride 10 mEq ER Tab PO ONE (08:57)
--- NOTE | 2018-05-26 11:52 | US ---
Date of service: 05/26/2018 PROCEDURE: Bilateral duplex Doppler carotid arterial ultrasound examination HISTORY: syncope COMPARISON: Not available TECHNIQUE: Ultrasound examination of the carotid arteries was performed bilaterally utilizing a linear array color Doppler transducer. FINDINGS: Right carotid artery: There is intimal thickening in the common carotid artery. There is calcified plaque in the carotid bulb. No definite plaque identified in the internal carotid artery. Peak systolic velocity measurements: CCA: 62.1 cm/sec ICA: 40.3 ICA/CCA peak systolic velocity ratio: 0.8 Antegrade flow demonstrated in right vertebral artery Left carotid artery: Intimal thickening in the mid to distal common carotid artery. Extensive calcified atheromatous plaque in carotid bulb. No definite plaque identified in the internal carotid artery. No definite plaque identified in the internal carotid artery. Peak systolic velocity measurements: CCA: 60.1 cm/sec ICA: 88.5 cm/sec ICA/CCA peak systolic velocity ratio: 1.3 Antegrade flow demonstrated in the vertebral artery Incidental finding of bilateral thyroid nodules. Recommend full evaluation with thyroid ultrasound examination. IMPRESSION: No evidence of hemodynamically significant carotid arterial stenosis bilaterally (less than 50 percent).
[2018-05-27 05:44] LABS: BASO # 0.1 K/uL (0.0-0.2); BASO % 1.1 % (0.0-2.0); EOS # 0.1 K/uL (0.0-0.7); EOS % 1.7 % (0.0-4.0); HEMOGLOBIN 12.6 g/dL (12.0-16.0); LYMPH # 1.6 K/uL (1.0-4.3); LYMPH % 18.9 % (20.0-40.0); MEAN CELL VOLUME 84.9 fl (81.0-99.0); MEAN CORPUSCULAR HEMOGLOBIN 28.7 pg (27.0-31.0); MEAN CORPUSCULAR HGB CONC 33.9 g/dL (33.0-37.0); MEAN PLATELET VOLUME 10.4 fl (7.2-11.7); MONO # 0.6 K/uL (0.0-0.8); MONO % 7.6 % (0.0-10.0); NEUT % 70.7 % (50.0-75.0); NRBC % 0.7 % (0.0-0.0); RBC 4.38 Mil/uL (3.80-5.20); RED CELL DISTRIBUTION WIDTH 12.9 % (11.5-14.5); WHITE BLOOD COUNT 8.4 K/uL (4.8-10.8)
[2018-05-27 06:04] LABS: BLOOD UREA NITROGEN 8 mg/dl (7-17); CALCIUM 9.1 mg/dL (8.4-10.2); GFR AFRICAN-AMERICAN > 60; GFR NON-AFRICAN AMERICAN > 60
--- NOTE | 2018-05-27 07:06 | CP.PCM.PN ---
Subjective - Date & Time of Evaluation Date of Evaluation: 05/25/18 Time of Evaluation: 07:30 - Subjective Subjective: Patient for cardiac cath Has no sx vitals are stable ECHO showed cardiomyopathy with EF 35 5 Objective - Vital Signs/Intake and Output Vital Signs (last 24 hours): Temp Pulse Resp BP Pulse Ox 97.9 F 66 13 124/70 98 05/27/18 04:00 05/27/18 06:00 05/27/18 06:00 05/27/18 06:00 05/27/18 06:00 - Medications Medications: Current Medications Acetaminophen (Tylenol 325mg Tab) 650 mg PO Q4 PRN PRN Reason: Pain, moderate (4-7) Amlodipine Besylate (Norvasc) 5 mg PO DAILY [facility] Last Admin: 05/26/18 09:58 Dose: 5 mg Carvedilol (Coreg) 6.25 mg PO Q12@0200,1400 [facility] Last Admin: 05/27/18 01:20 Dose: 6.25 mg Ondansetron HCl (Zofran Inj) 2 mg IVP Q4 PRN PRN Reason: Nausea/Vomiting Last Admin: 05/23/18 11:21 Dose: 2 mg Ticagrelor (Brilinta) 90 mg PO BID [facility] Last Admin: 05/26/18 18:47 Dose: Not Given - Labs Labs: 05/27/18 04:40 05/27/18 04:40 PT 11.7 Seconds (9.8-13.1) 05/26/18 04:00 INR 1.1 (0.9-1.2) 05/26/18 04:00 APTT 30.8 Seconds (25.6-37.1) 05/26/18 04:00 - Head Exam Head Exam: NORMAL INSPECTION - Eye Exam Eye Exam: Normal appearance - ENT Exam ENT Exam: Mucous Membranes Moist - Respiratory Exam Respiratory Exam: Clear to Ausculation Bilateral - Cardiovascular Exam Cardiovascular Exam: REGULAR RHYTHM - GI/Abdominal Exam GI & Abdominal Exam: Soft - Neurological Exam Neurological Exam: CN II-XII Intact, Oriented x3 Assessment and Plan (1) Syncope Status: Acute (2) Laceration of scalp Status: Acute (3) Contusion of head Status: Acute (4) HTN (hypertension) Status: Acute (5) Cardiomyopathy Status: Acute - Assessment and Plan (Free Text) Plan: Cont meds Cont tx xocnt IV for cardiac caath
--- NOTE | 2018-05-27 07:09 | CP.PCM.PN ---
Subjective - Date & Time of Evaluation Date of Evaluation: 05/26/18 Time of Evaluation: 10:30 - Subjective Subjective: Patient has been stable post cardiac cath scheduled for angioplasty tomorrow. Objective - Vital Signs/Intake and Output Vital Signs (last 24 hours): Temp Pulse Resp BP Pulse Ox 97.9 F 66 13 124/70 98 05/27/18 04:00 05/27/18 06:00 05/27/18 06:00 05/27/18 06:00 05/27/18 06:00 - Medications Medications: Current Medications Acetaminophen (Tylenol 325mg Tab) 650 mg PO Q4 PRN PRN Reason: Pain, moderate (4-7) Amlodipine Besylate (Norvasc) 5 mg PO DAILY [facility] Last Admin: 05/26/18 09:58 Dose: 5 mg Carvedilol (Coreg) 6.25 mg PO Q12@0200,1400 [facility] Last Admin: 05/27/18 01:20 Dose: 6.25 mg Ondansetron HCl (Zofran Inj) 2 mg IVP Q4 PRN PRN Reason: Nausea/Vomiting Last Admin: 05/23/18 11:21 Dose: 2 mg Ticagrelor (Brilinta) 90 mg PO BID [facility] Last Admin: 05/26/18 18:47 Dose: Not Given - Labs Labs: 05/27/18 04:40 05/27/18 04:40 PT 11.7 Seconds (9.8-13.1) 05/26/18 04:00 INR 1.1 (0.9-1.2) 05/26/18 04:00 APTT 30.8 Seconds (25.6-37.1) 05/26/18 04:00 Assessment and Plan (1) Syncope Status: Acute (2) Laceration of scalp Status: Acute (3) Contusion of head Status: Acute (4) HTN (hypertension) Status: Acute (5) Cardiomyopathy Status: Acute
--- NOTE | 2018-05-27 08:03 | CP.PCM.PN ---
Subjective - Date & Time of Evaluation Date of Evaluation: 05/27/18 Time of Evaluation: 08:00 - Subjective Subjective: patient is s/p successful stent of the obtuse marginal artery can d/c on ASA 81 mg daily. Brilinta 90mg BID. statin added. will reevaluate ARB therapy as outpatient. outpatient follow up Objective - Vital Signs/Intake and Output Vital Signs (last 24 hours): Temp Pulse Resp BP Pulse Ox 97.9 F 66 13 124/70 98 05/27/18 04:00 05/27/18 06:00 05/27/18 06:00 05/27/18 06:00 05/27/18 06:00 - Medications Medications: Current Medications Acetaminophen (Tylenol 325mg Tab) 650 mg PO Q4 PRN PRN Reason: Pain, moderate (4-7) Amlodipine Besylate (Norvasc) 5 mg PO DAILY [facility] Last Admin: 05/26/18 09:58 Dose: 5 mg Aspirin/Aluminum/Magnesium/Ca Carb (Bufferin) 81 mg PO DAILY [facility] Carvedilol (Coreg) 6.25 mg PO Q12@0200,1400 [facility] Last Admin: 05/27/18 01:20 Dose: 6.25 mg Ondansetron HCl (Zofran Inj) 2 mg IVP Q4 PRN PRN Reason: Nausea/Vomiting Last Admin: 05/23/18 11:21 Dose: 2 mg Ticagrelor (Brilinta) 90 mg PO BID [facility] Last Admin: 05/26/18 18:47 Dose: Not Given - Labs Labs: 05/27/18 04:40 05/27/18 04:40 PT 11.7 Seconds (9.8-13.1) 05/26/18 04:00 INR 1.1 (0.9-1.2) 05/26/18 04:00 APTT 30.8 Seconds (25.6-37.1) 05/26/18 04:00 Assessment and Plan (1) Cardiomyopathy Status: Acute (2) Syncope Status: Acute (3) HTN (hypertension) Status: Acute
[2018-05-27] MEDS ORDERED: Potassium CL 10 MEQ/50 ML 50 ML IVPB ONE (10:30)
[2018-05-27] MEDS ORDERED: Potassium Chloride 20 mEq ER Tab PO ONE (10:30)
[2018-05-27 16:23] LABS: BLOOD UREA NITROGEN 13 mg/dl (7-17); CALCIUM 9.3 mg/dL (8.4-10.2); GFR AFRICAN-AMERICAN > 60; GFR NON-AFRICAN AMERICAN > 60
--- NOTE | 2018-05-27 17:56 | CP.PCM.PN ---
Subjective - Date & Time of Evaluation Date of Evaluation: 05/27/18 Time of Evaluation: 17:50 - Subjective Subjective: patient has no chest pain or dyspnea. Had ectopy associated with hypokalemia. received K supplementation with improvement in rhythm Objective - Vital Signs/Intake and Output Vital Signs (last 24 hours): Temp Pulse Resp BP Pulse Ox 98 F 81 15 124/69 97 05/27/18 16:00 05/27/18 17:49 05/27/18 16:00 05/27/18 17:49 05/27/18 16:00 - Medications Medications: Current Medications Acetaminophen (Tylenol 325mg Tab) 650 mg PO Q4 PRN PRN Reason: Pain, moderate (4-7) Amlodipine Besylate (Norvasc) 5 mg PO DAILY [facility] Last Admin: 05/27/18 08:59 Dose: 5 mg Aspirin (Ecotrin) 81 mg PO DAILY [facility] Last Admin: 05/27/18 11:08 Dose: 81 mg Atorvastatin Calcium (Lipitor) 40 mg PO DAILY [facility] Last Admin: 05/27/18 11:09 Dose: 40 mg Carvedilol (Coreg) 6.25 mg PO Q12@0200,1400 [facility] Last Admin: 05/27/18 17:49 Dose: 6.25 mg Ondansetron HCl (Zofran Inj) 2 mg IVP Q4 PRN PRN Reason: Nausea/Vomiting Last Admin: 05/23/18 11:21 Dose: 2 mg Ticagrelor (Brilinta) 90 mg PO BID [facility] Last Admin: 05/27/18 17:50 Dose: 90 mg - Labs Labs: 05/27/18 04:40 05/27/18 15:50 PT 11.7 Seconds (9.8-13.1) 05/26/18 04:00 INR 1.1 (0.9-1.2) 05/26/18 04:00 APTT 30.8 Seconds (25.6-37.1) 05/26/18 04:00 - Constitutional Appears: Non-toxic - Head Exam Head Exam: NORMAL INSPECTION - Eye Exam Eye Exam: Normal appearance - ENT Exam ENT Exam: Mucous Membranes Moist - Neck Exam Neck Exam: Full ROM - Respiratory Exam Respiratory Exam: NORMAL BREATHING PATTERN - Cardiovascular Exam Cardiovascular Exam: REGULAR RHYTHM - GI/Abdominal Exam GI & Abdominal Exam: Normal Bowel Sounds - Rectal Exam Rectal Exam: Deferred - Extremities Exam Extremities Exam: Pedal Edema - Back Exam Back Exam: NORMAL INSPECTION - Neurological Exam Neurological Exam: Alert - Psychiatric Exam Psychiatric exam: Normal Affect - Skin Skin Exam: Normal Color Assessment and Plan (1) Cardiomyopathy Assessment & Plan: ischemic. s/p stento OM1. will continue ASA, Brilinta. keep K >4.0 can d/c in am Status: Acute (2) HTN (hypertension) Assessment & Plan: blood pressure control. Status: Acute (3) CAD (coronary artery disease) Assessment & Plan: s/p PCI OM1. ASA 81 mg daily.Brilinta 90 mg BID. statin therapy. Status: Acute
[2018-05-28 05:35] LABS: BASO % 0.5 % (0.0-2.0); EOS # 0.2 K/uL (0.0-0.7); EOS % 1.8 % (0.0-4.0); HEMOGLOBIN 12.4 g/dL (12.0-16.0); LYMPH # 1.3 K/uL (1.0-4.3); LYMPH % 14.8 % (20.0-40.0); MEAN CELL VOLUME 85.1 fl (81.0-99.0); MEAN CORPUSCULAR HEMOGLOBIN 28.7 pg (27.0-31.0); MEAN CORPUSCULAR HGB CONC 33.7 g/dL (33.0-37.0); MEAN PLATELET VOLUME 9.9 fl (7.2-11.7); MONO # 0.8 K/uL (0.0-0.8); MONO % 9.4 % (0.0-10.0); NEUT # 6.5 K/uL (1.8-7.0); NEUT % 73.5 % (50.0-75.0); NRBC % 0.1 % (0.0-0.0); RBC 4.34 Mil/uL (3.80-5.20); WHITE BLOOD COUNT 8.8 K/uL (4.8-10.8)
[2018-05-28 05:44] LABS: BLOOD UREA NITROGEN 13 mg/dl (7-17); CALCIUM 9.1 mg/dL (8.4-10.2); GFR AFRICAN-AMERICAN > 60; GFR NON-AFRICAN AMERICAN > 60
[2018-05-28 08:24] VITALS: TEMP 97.5
[2018-05-28 09:48] VITALS: BP 112/52; PULSE 80; RESP 16; O2SAT 97
--- NOTE | 2018-05-28 11:55 | CP.PCM.DIS ---
Provider - Provider Date of Admission: 05/23/18 14:00 Attending physician: Benjie Garcia MD Time Spent in preparation of Discharge (in minutes): 20 Diagnosis - Discharge Diagnosis (1) CAD (coronary artery disease) Status: Acute (2) Contusion of head Status: Acute (3) HTN (hypertension) Status: Chronic (4) Laceration of scalp Status: Acute (5) Syncope Status: Acute Hospital Course - Lab Results Lab Results: Micro Results 05/26/18 03:00 Naris MRSA Culture (Admit) - Final MRSA NOT DETECTED Most Recent Lab Values WBC 8.8 K/uL (4.8-10.8) 05/28/18 04:30 RBC 4.34 Mil/uL (3.80-5.20) 05/28/18 04:30 Hgb 12.4 g/dL (12.0-16.0) 05/28/18 04:30 Hct 36.9 % (34.0-47.0) 05/28/18 04:30 MCV 85.1 fl (81.0-99.0) 05/28/18 04:30 MCH 28.7 pg (27.0-31.0) 05/28/18 04:30 MCHC 33.7 g/dL (33.0-37.0) 05/28/18 04:30 RDW 13.0 % (11.5-14.5) 05/28/18 04:30 Plt Count 163 K/uL (130-400) 05/28/18 04:30 MPV 9.9 fl (7.2-11.7) 05/28/18 04:30 Neut % (Auto) 73.5 % (50.0-75.0) 05/28/18 04:30 Lymph % (Auto) 14.8 % (20.0-40.0) L 05/28/18 04:30 Leon % (Auto) 9.4 % (0.0-10.0) 05/28/18 04:30 Eos % (Auto) 1.8 % (0.0-4.0) 05/28/18 04:30 Baso % (Auto) 0.5 % (0.0-2.0) 05/28/18 04:30 Neut # (Auto) 6.5 K/uL (1.8-7.0) 05/28/18 04:30 Lymph # (Auto) 1.3 K/uL (1.0-4.3) 05/28/18 04:30 Leon # (Auto) 0.8 K/uL (0.0-0.8) 05/28/18 04:30 Eos # (Auto) 0.2 K/uL (0.0-0.7) 05/28/18 04:30 Baso # (Auto) 0.0 K/uL (0.0-0.2) 05/28/18 04:30 PT 11.7 Seconds (9.8-13.1) 05/26/18 04:00 INR 1.1 (0.9-1.2) 05/26/18 04:00 APTT 30.8 Seconds (25.6-37.1) 05/26/18 04:00 Sodium 138 mmol/l (132-148) 05/28/18 04:30 Potassium 4.0 MMOL/L (3.6-5.0) 05/28/18 04:30 Chloride 105 mmol/L (98-107) 05/28/18 04:30 Carbon Dioxide 25 mmol/L (22-30) 05/28/18 04:30 Anion Gap 12 (10-20) 05/28/18 04:30 BUN 13 mg/dl (7-17) 05/28/18 04:30 Creatinine 0.6 mg/dl (0.7-1.2) L 05/28/18 04:30 Est GFR ( Amer) > 60 05/28/18 04:30 Est GFR (Non-Af Amer) > 60 05/28/18 04:30 POC Glucose (mg/dL) 109 mg/dL (65-110) 05/22/18 12:50 Random Glucose 104 mg/dL (65-105) 05/28/18 04:30 Calcium 9.1 mg/dL (8.4-10.2) 05/28/18 04:30 Phosphorus 3.8 mg/dl (2.5-4.5) 05/26/18 04:40 Magnesium 2.0 MG/DL (1.6-2.3) 05/26/18 04:40 Total Bilirubin 0.8 mg/dl (0.2-1.3) 05/23/18 06:30 AST 28 U/L (14-36) 05/23/18 06:30 ALT 39 U/L (9-52) 05/23/18 06:30 Alkaline Phosphatase 64 U/L (38-126) 05/23/18 06:30 Troponin I < 0.0120 ng/mL (0.00-0.120) 05/23/18 06:30 Total Protein 6.8 G/DL (6.3-8.2) 05/23/18 06:30 Albumin 4.0 g/dL (3.5-5.0) 05/23/18 06:30 Globulin 2.8 gm/dL (2.2-3.9) 05/23/18 06:30 Albumin/Globulin Ratio 1.4 (1.0-2.1) 05/23/18 06:30 TSH 3rd Generation 1.37 mIU/ML (0.46-4.68) 05/26/18 04:40 Urine Color Yellow (YELLOW) 05/23/18 11:30 Urine Clarity Clear (Clear) 05/23/18 11:30 Urine pH 6.0 (5.0-8.0) 05/23/18 11:30 Ur Specific [place] 1.016 (1.003-1.030) 05/23/18 11:30 Urine Protein Negative mg/dL (NEGATIVE) 05/23/18 11:30 Urine Glucose (UA) Neg mg/dL (Normal) 05/23/18 11:30 Urine Ketones 80 mg/dL (NEGATIVE) 05/23/18 11:30 Urine Blood Negative (NEGATIVE) 05/23/18 11:30 Urine Nitrate Negative (NEGATIVE) 05/23/18 11:30 Urine Bilirubin Negative (NEGATIVE) 05/23/18 11:30 Urine Urobilinogen 0.2-1.0 mg/dL (0.2-1.0) 05/23/18 11:30 Ur Leukocyte Esterase Neg Samara/uL (Negative) 05/23/18 11:30 Urine RBC (Auto) 2 /hpf (0-3) 05/23/18 11:30 Urine Microscopic WBC 1 /hpf (0-5) 05/23/18 11:30 Ur Squamous Epith Cells < 1 /hpf (0-5) 05/23/18 11:30 Urine Opiates Screen Negative (NEGATIVE) 05/25/18 07:36 Urine Methadone Screen Negative (NEGATIVE) 05/25/18 07:36 Ur Barbiturates Screen Negative (NEGATIVE) 05/25/18 07:36 Ur Phencyclidine Scrn Negative (NEGATIVE) 05/25/18 07:36 Ur Amphetamines Screen Negative (NEGATIVE) 05/25/18 07:36 U Benzodiazepines Scrn Negative (NEGATIVE) 05/25/18 07:36 U Oth Cocaine Metabols Negative (NEGATIVE) 05/25/18 07:36 U Cannabinoids Screen Positive (NEGATIVE) H 05/25/18 07:36 - Hospital Course Hospital Course: 73 Yo female with PMHx of HTN was admitted after a syncopal episode where she obtained a head lac. Workup was sig for echo with wall motion abnormalities suggestive of CAD, subsequently cardiac cath was done. Pt was found to have multiple blocks in her coronary arteries. Pt went to [facility] for angioplasty, and stent was placed on the obtuse marginal artery. Pt doing well post procedure, cleared by cardiology for d/c home. New meds started per cardio, pt is ambulating, tolerating diet and remains hemodynamically stable. Elpidio removed from lac, well healed. Will d/c patient home on new drug regimen, follow up with PMD in 1 week and cardiology in 1 week. Discharge Exam - Head Exam Head Exam: NORMAL INSPECTION Additional comments: small head lac on L side, well healed; 8 elpidio removed - Eye Exam Eye Exam: EOMI - ENT Exam ENT Exam: Mucous Membranes Moist - Respiratory Exam Respiratory Exam: Clear to PA & Lateral. absent: Wheezes - Cardiovascular Exam Cardiovascular Exam: REGULAR RHYTHM, +S1, +S2 - GI/Abdominal Exam GI & Abdominal Exam: Normal Bowel Sounds, Soft. absent: Tenderness - Extremities Exam Extremities exam: normal inspection - Neurological Exam Neurological exam: Alert, Oriented x3 - Psychiatric Exam Psychiatric exam: Normal Affect, Normal Mood Discharge Plan - Discharge Medications Prescriptions: Aspirin [Ecotrin] 81 mg PO DAILY #30 tabec Atorvastatin [Lipitor] 40 mg PO DAILY #30 tab Carvedilol [Coreg] 6.25 mg PO BID #60 tab Ticagrelor [Brilinta] 90 mg PO BID #60 tab - Follow Up Plan Condition: FAIR Disposition: HOME/ ROUTINE Patient education suggested?: Yes Instructions: Recovery After Coronary Artery Bypass Graft Surgery (CABG), Coronary Heart Disease (DC), Coronary Heart Disease in Women, Lowering Your Risk of Heart Disease, Contusion in Adults (DC) Additional Instructions: Please 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
== END 2018-05-28 12:30 | disposition home or self-care (01) | DRG 247 ==
LOC: H.ER 11:42 → H.ERHOLD 14:27 → H.TEL 21:34 → OBSVTOIN 05-23 14:00 → H.ICU/CCU 05-25 20:24
PROVIDERS: ADMIT Family Medicine; ATTEND Family Medicine
PROC: 0HQ0XZZ Repair Scalp Skin, External Approach (ICD-10-PCS; principal; 2018-05-23)
PROC: 4A023N7 Measurement of Cardiac Sampling and Pressure, Left Heart, Percutaneous Approach (ICD-10-PCS; 2018-05-25)
PROC: B215YZZ Fluoroscopy of Left Heart using Other Contrast (ICD-10-PCS; 2018-05-25)
PROC: 027034Z Dilation of Coronary Artery, One Artery with Drug-eluting Intraluminal Device, Percutaneous Approach (ICD-10-PCS; 2018-05-26)
PROC: 4A023N7 Measurement of Cardiac Sampling and Pressure, Left Heart, Percutaneous Approach (ICD-10-PCS; 2018-05-26)
PROC: B215YZZ Fluoroscopy of Left Heart using Other Contrast (ICD-10-PCS; 2018-05-26)
DX: I25.10 Atherosclerotic heart disease of native coronary artery without angina pectoris (principal); I10 Essential (primary) hypertension; E78.5 Hyperlipidemia, unspecified; Z87.891 Personal history of nicotine dependence; E78.00 Pure hypercholesterolemia, unspecified; S01.01XA Laceration without foreign body of scalp, initial encounter; Y92.312 Tennis court as the place of occurrence of the external cause; S00.93XA Contusion of unspecified part of head, initial encounter; W18.30XA Fall on same level, unspecified, initial encounter; R55 Syncope and collapse; I25.5 Ischemic cardiomyopathy; E87.6 Hypokalemia; I25.82 Chronic total occlusion of coronary artery